=== PATIENT | male | born 1970 | race Caucasian/White ===

== ENCOUNTER 2021-07-03 12:42 | Emergency (ER) | payer MEDICAID, SELFPAY ==
[2021-07-03 12:45] VITALS: BP 140/86; PULSE 120; RESP 24; TEMP 36.9; O2SAT 96; BMI 23.7
--- NOTE | 2021-07-03 13:07 | HMH.EDUTC ---
[facility] [place] Impression: Viral syndrome, Gastroenteritis Disposition: Home, Self-Care Condition on Discharge: Good Instructions: Viral Gastroenteritis, DI for Viral Gastroenteritis -- Adult, DI for COVID-19 (Suspected or Confirmed ), Preventing the Spread of Coronavirus Discharge Instructions Additional Instructions: Drink plenty of fluids. Take tylenol or ibuprofen for pain or fever. Take the medications as directed. Follow up with your regular doctor. GO TO THE ER FOR ANY WORSENING SYMPTOMS Quarantine until you know the results of your covid-19 test. If it is positive, the health department should call you and give you further instructions about your length of Quarantine and other things. Notify your school or workplace of your results and follow their instructions regarding return to work/school. Prescriptions: Ondansetron [Zofran 4mg ODT] 4 mg PO DAILYP PRN #12 tab PRN Reason: Nausea Transmission Status: Received by [facility] Referrals: Camila Kirby APRN [Primary Care Provider] - Forms: Work/School Release Time of Disposition: 13:27 Medical Decision Making - Medical Records Medical records reviewed: No: I reviewed the patient's medical records. - Jerry Inquiry Pt receiving controlled substance: No Vital Signs: 07/03/21 12:45 07/03/21 13:18 Temperature 98.4 F 98.4 F Temperature Source Oral Pulse Rate 120 H Pulse Rate [Right Brachial] 120 H Respiratory Rate 24 24 Blood Pressure 140/86 Blood Pressure [Right Arm] 140/86 Blood Pressure Mean [Right Arm] 104 Blood Pressure Source [Right Arm] Automatic Cuff Blood Pressure Position [Right Arm] Sitting 02 Sat by Pulse Oximetry 96 Oxygen Delivery Method Room Air - Lab Data Lab results reviewed: Yes: I reviewed the patient's lab results. Lab Results 07/03/21 13:11: Strep Scn Rapid Clinic Negative Orders (Tests/Meds): ORDERS Category Date Time Status Strep Screen Confirmation Stat Micro 07/03/21 13:11 [place] [facility] [place] - General Stated complaint: fever,vomiting,head hurts when coughs Time Seen by Provider: 07/03/21 13:08 Mode of Arrival: Ambulatory Source of Information: Patient Limitations: No Limitations Description of Symptoms (Recalled from Triage Doc. by RN): PATIENT C/O FATIGUE, FEVER, AND VOMITING THAT STARTED TUESDAY. HIS DAUGHTER TESTED POSITIVE FOR COVID YESTERDAY HEENT Symptoms (Recalled from RN notes): No Resp Symptoms (Recalled from RN notes): No Skin Symptoms (Recalled from RN notes): No MS Symptoms (Recalled from RN notes): No Functional Status (Recalled from RN notes): WNL - History of Present Illness Provider Complaint: He states that he has had a head ache, sinus drainage,chills and body aches for the past 2 days. - Related Data Previous Rx's Medication Instructions Recorded Ondansetron [Zofran 4mg ODT] 4 mg PO DAILYP PRN #12 tab 07/03/21 Allergies Allergy/AdvReac Type Severity Reaction Status Date / Time hydrocodone [HYDROCODONE] Allergy Unknown SWELLING/RA Verified 07/03/21 13:03 SH - Worker's Comp Is this a Worker's Comp case?: No [facility] [place] History - Hepatitis A Screen Drug use history?: No High risk sexual behaviors?: No History of sexually transmitted infection?: No Currently employed?: No Childcare worker?: No Do you have indoor plumbing?: Yes Do you have electricity?: Yes Attestation statement:: This patient has been screened for Hepatitis A risk factors. I have reviewed the patient's past medical history: Yes ROS Obtained: Yes All systems reviewed & no additional complaints - Constitutional Constitutional: Reports chills, Denies fever(s), Reports poor appetite, Reports malaise - Eyes Eyes: Denies eye discharge - ENT Ears, Nose, Mouth, and Throat: Reports as per HPI - Cardiovascular Cardiovascular: Denies chest pain Physical Exam - General General appearance: alert, in no apparent distress - Miguel Angel
[2021-07-03 13:18] VITALS: BP 140/86; PULSE 120; RESP 24; TEMP 36.9; O2SAT 96
[2021-07-03 13:26] LABS: UTC Strep Screen (Rapid) Negative (Negative)
== END 2021-07-03 13:31 | disposition home or self-care (01) ==
PROVIDERS: Emergency Provider Nurse Practitioner Family; PCP Nurse Practitioner Family
DX: K52.9 Noninfective gastroenteritis and colitis, unspecified (principal); Z20.822 Contact with and (suspected) exposure to COVID-19
CPT/HCPCS: 87880; 99203; C9803; G0463; U0003; U0005

== ENCOUNTER 2024-06-08 13:27 | Emergency (ER) | payer MEDICAID, SELFPAY ==
[2024-06-08] VITALS (10 sets, daily range): BP systolic 131–147; BP diastolic 70–87; PULSE 93–145; RESP 16–19; TEMP 36.6–37.2; O2SAT 90–97; BMI 21.6
--- NOTE | 2024-06-08 13:31 | ECG_ITS ---
APPROVED REPORT Exam: Resting ECG HR:146 bpm ECG Measurements Heart Rate 146 AXES AR 116 P 90 QRSd 93 QRS 81 QT 326 T 84 QTc 410 Conclusion SINUS TACHYCARDIA WITH SHORT AR INTERVAL, POSSIBLE ATRIAL FLUTTER NONSPECIFIC ST & T-WAVE ABNORMALITY ABNORMAL RHYTHM ECG Electronically signed by : ALTON PEPE, 06/12/2024 18:24:02
--- NOTE | 2024-06-08 13:35 | ED_ITS ---
Discharge Plan Disposition Chief Complaint: Recheck/Abnormal Lab/Rx Prescriptions Prescriptions: No Action ondansetron 4 MG tablet,disintegrating 4 mg PO DAILYP PRN (Reason: Nausea) Qty: 12 0RF Referrals Follow up/Referrals: Provider,Referral, [Primary Care Provider] - See instructions Clinical Impressions Clinical Impression: Opioid abuse, Alcohol intoxication, Heat exposure Print Language Print Language: German Discharge ED Provider: Mohsen Agarwal General Adult HPI General Chief complaint: Recheck/Abnormal Lab/Rx Stated complaint: heat exhausting Time Seen by Provider: 06/08/24 13:34 History of Present Illness HPI narrative: Jan Mart is a 54-year-old male who presents to the emergency department via EMS for possible heat exposure and heroin overdose. Per EMS, patient was found with several other individuals at a house that is under construction and he admitted to using IV heroin today as well as drinking several fireball shots. When EMS arrived, they state that he was alert but they had difficulty getting him to his feet. He received Narcan and route and had some improvement of his symptoms. Patient is complaining of being thirsty at this time. He feels like he was out in the sun for too long and feels dehydrated. He is complaining of some abdominal pain at this time. Related Data Previous Rx's ?Medication ?Instructions ?Recorded ondansetron 4 mg disintegrating 4 mg PO DAILYP PRN Nausea #12 tabs 07/03/21 tablet Allergies Allergy/AdvReac Type Severity Reaction Status Date / Time hydrocodone [HYDROCODONE] Allergy Unknown SWELLING/RA Verified 07/03/21 13:03 [facility] Disclaimer: The information contained in this section may have been updated after the patient was seen, as this information can be updated by other users. Social History Smoking Status: Current every day smoker alcohol intake: current current occupational status: other details: unknown at this time Travel in the last 8 weeks: None ROS Obtained: Yes Systems reviewed as appropriate & no additional complaints except as documented Physical Exam General General appearance: alert, in no apparent distress and other Comment: Disheveled Head Head exam: atraumatic Eye Eye exam: Present normal appearance and PERRL ENT ENT exam: Present normal external ear exam Neck Neck exam: Present full ROM Chest Chest inspection: Present normal inspection and symmetric chest wall rise Respiratory Respiratory exam: Present normal lung sounds bilaterally; Absent respiratory distress, wheezes or stridor Cardiovascular Cardiovascular exam: Present normal rhythm and tachycardia Abdominal Exam Abdominal exam: Present soft, tenderness (Generalized) and guarding (Voluntary); Absent rigidity exam: Present deferred Extremities Exam Extremities exam: Present normal inspection Back Exam Back exam: Present normal inspection Neurological Exam Neurological exam: Present alert and oriented X3 Psychiatric Psychiatric exam: Present agitated (Repeatedly asking for water to drink and frustrated that he has not been given it yet) Skin Skin exam: Present warm and dry Medical Decision Making Medical Records Medical records reviewed: Yes I reviewed the patient's medical records. Jerry Inquiry Pt receiving controlled substance: No Vital Signs: 06/08/24 13:28 06/08/24 13:29 06/08/24 13:30 Temperature 99.0 F Temperature Source Oral Pulse Rate 145 H 140 H Pulse Rate [Left Radial] 130 H Respiratory Rate 19 Blood Pressure 139/81 135/87 Blood Pressure [Right Arm] 139/81 Blood Pressure Mean Blood Pressure Mean [Right Arm] 100 02 Sat by Pulse Oximetry 96 97 96 Oxygen Delivery Method Room Air Room Air Room Air 06/08/24 13:30 06/08/24 13:45 06/08/24 14:00 Temperature Temperature Source Pulse Rate 129 H 107 H Pulse Rate [Left Radial] Respiratory Rate Blood Pressure 135/87 132/78 Blood Pressure [Right Arm] Blood Pressure Mean 103 Blood Pressure Mean [Right Arm] 02 Sat by Pulse Oximetry 96 92 L Oxygen Delivery Method Room Air Room Air 06/08/24 14:30 06/08/24 15:00 Temperature Temperature Source Pulse Rate 105 H 93 H Pulse Rate [Left Radial] Respiratory Rate Blood Pressure 131/83 147/70 H Blood Pressure [Right Arm] Blood Pressure Mean Blood Pressure Mean [Right Arm] 02 Sat by Pulse Oximetry 93 L 92 L Oxygen Delivery Method Room Air Room Air Lab Data Lab Results 06/08/24 13:38: WBC 6.1, RBC 4.03 L, Hgb 14.2, Hct 43.8, MCV 108.7 H, MCH 35.1 H , MCHC 32.3, RDW 14.3, Plt Count 251, MPV 8.3, Neut % (Auto) 93.5 H, Lymph % (Auto) 4.1 L, Giles % (Auto) 1.3 L, Eos % (Auto) 0.8, Baso % (Auto) 0.3, Neut # (Auto) 5.7, Lymph # (Auto) 0.2 L, Giles # (Auto) 0.1, Eos # (Auto) 0.1, Baso # (Auto) 0.0, Total Counted 100, Neutrophils % (Manual) 91 H, Lymphocytes % (Manual) 8 L, Monocytes % (Manual) 1 L, Platelet Estimate Normal, RBC Morphology Normal, Sodium 137, Potassium 3.1 L, Chloride 103, Carbon Dioxide 23, Anion Gap 14.1, BUN 9, Creatinine 0.80, Estimated Creat Clear 104, Estimated GFR 100, Est GFR ( Amer) 121, Glucose 111 H, Calcium 8.2 L, Total Bilirubin 2.3 H, AST 132 H, ALT 44, Alkaline Phosphatase 196 H, Total Protein 7.1, Albumin 3.4 L, G lobulin 3.7 H, Albumin/Globulin Ratio 0.9 L, Lipase 229 06/08/24 13:38 06/08/24 13:38 Orders (Tests/Meds): ED MEDICATIONS Discontinued Medications Generic Name Dose Route Start Last Admin Trade Name Freq PRN Reason Stop Dose Admin Lactated Ringer's 500 mls @ 999 mls/hr 06/08/24 13:33 06/08/24 13:39 Lactated Ringer's 1000 Ml Bag IV 06/08/24 14:03 Not Given .Q31M ONE Lactated Ringer's 1,000 mls @ 999 mls/hr 06/08/24 13:38 06/08/24 13:41 Lactated Ringer's 1000 Ml Bag IV 06/08/24 14:38 999 mls/hr .Q1H1M ONE Administration Ondansetron HCl 4 mg 06/08/24 13:33 06/08/24 13:41 Ondansetron 4mg/2ml Vial IM 06/08/24 13:34 Not Given ONCE ONE Ondansetron HCl 4 mg 06/08/24 13:40 06/08/24 13:41 Ondansetron 4mg/2ml Vial IV 06/08/24 13:41 4 mg ONCE ONE Administration Potassium Chloride 60 meq 06/08/24 15:07 06/08/24 15:13 Potassium Chloride 20meq Tab PO 06/08/24 15:08 20 meq ONCE ONE Administration ORDERS Category Date Time Status Consult Exhauster Engineer [CONS] Routine Cons 06/08/24 14:49 Ordered CBC w/Auto Diff [Complete Blood Count Auto Diff] Stat Lab 06/08/24 13:38 Completed CMP [Comprehensive Metabolic Panel] Stat Lab 06/08/24 13:38 Completed HCV RNA PCR, Quant Stat Lab 06/08/24 15:04 Ordered Hepatitis Panel Stat Lab 06/08/24 15:04 Ordered Lipase Stat Lab 06/08/24 13:38 Completed Medical Decision Narrative: Jan Mart is a 54-year-old male with a history of alcohol use and substance use presenting to the emergency department for heroin use and heat exposure. Per EMS, patient was at a house that is under construction with several other individuals who were using IV drugs and drinking fireball shots. Patient admits to using IV heroin and drinking several fireball shots prior to this. EMS noted that he was unsteady on his feet and was given Narcan in the field with mild improvement of symptoms. He received small amount of IV fluids and round but no medications. They noted that he was vomiting multiple times and route. Patient is complaining of some abdominal pain but is repeatedly asking for water and is very frustrated that he has not been given water yet. He appears disheveled but no evidence of injury. Cardiopulmonary exams unremarkable. He has diffuse abdominal tenderness with voluntary guarding. Patient was noted to be tachycardic but hemodynamically stable. Patient is GCS 15 on arrival. Differential diagnosis includes: Opioid overdose, alcohol intoxication, dehydration, heat exhaustion, pancreatitis, hepatitis, among others. Patient's workup in the emergency department included: CBC, CMP, lipase. He was treated with 1 L lactated ringer. He was given 4 mg of IV Zofran as well for nausea and vomiting CBC demonstrated no leukocytosis, CMP with potassium of 3.1 (will replace with 60 mEq of p.o. potassium), total bilirubin elevated 2.3, AST elevated at 132, ALT normal at 44, alk phos elevated at 196 (will add hepatitis panel and hepatitis C PCR), lipase normal at 229. Throughout his ED stay, the patient's tachycardia improved. At this time, the patient's care was transferred to the oncoming physician, Dr. Cid, as he will need to metabolize the alcohol and opiates prior to being safe for discharge. Critical Care Critical Care Time Critical Care Time: No
[2024-06-08] MEDS: ONDANSETRON 4MG/2ML VIAL 4 MG IV ×2 (13:41→17:39)
[2024-06-08] MEDS: LACTATED RINGERS 1000ML 1,000 ML 999 ML IV (13:41)
[2024-06-08 13:50] LABS: Albumin Level 3.4 g/dl (3.5-5.0); Chloride 103 mmol/L (98-107); Potassium 3.1 mmoL/L (3.5-5.1); Sodium 137 mmol/L (136-145)
[2024-06-08 13:53] LABS: Alanine Aminotransferase 44 U/L (12-78); Albumin/Globulin Ratio 0.9 (1.1-1.8); Alkaline Phosphatase 196 U/L (38-126); Anion Gap 14.1 mEq/L (5-15); Aspartate Amino Transferase 132 U/L (17-59); Bilirubin,Total 2.3 mg/dl (0.2-1.3); Blood Urea Nitrogen 9 mg/dl (9-20); Calcium 8.2 mg/dl (8.4-10.2); Carbon Dioxide 23 mmol/L (22.0-30.0); Creatinine Clearance Estimated 104 mL/min (50-200); Estimated Glomerular Filt Rate 100 ml/min (>60); GFR (African American) 121 ML/MIN (>60); Globulin 3.7 g/dL (1.3-3.2); Glucose 111 mg/dl (74-100); Lipase 229 U/L (23-300); Total Protein,Serum 7.1 g/dl (6.3-8.2)
[2024-06-08 13:59] LABS: Basophils % 0.3 % (0.1-2.0); Eosinophils # 0.1 K/mm3 (0.0-0.4); Eosinophils % 0.8 % (0.1-12.0); Hematocrit 43.8 % (42.0-52.0); Hemoglobin 14.2 g/dL (14.1-18.0); Lymphocytes # 0.2 K/mm3 (0.7-4.5); Lymphocytes % 4.1 % (10-50); Mean Corpuscular HGB Conc 32.3 g/dL (31.8-35.4); Mean Corpuscular Hemoglobin 35.1 pg (27.0-31.2); Mean Corpuscular Volume 108.7 fl (80-94); Mean Platelet Volume 8.3 fl (7.4-10.4); Monocytes # 0.1 K/mm3 (0.1-1.0); Monocytes % 1.3 % (1.7-9.3); Neutrophils # 5.7 K/mm3 (1.8-7.8); Neutrophils % 93.5 % (37.0-80.0); Platelet Count 251 K/mm3 (142-424); Red Blood Count 4.03 M/mm3 (4.60-6.20); Red Cell Distribution Width 14.3 % (11.5-17.5); White Blood Count 6.1 K/mm3 (4.8-10.8)
[2024-06-08 14:11] LABS: MANUAL DIFFERENTIAL MANUAL DIFFERENTIAL (MANUAL DIFF)
--- NOTE | 2024-06-08 14:19 | PC.NURSE ---
Alanna, web specialist at [facility] with pt
[2024-06-08 15:06] LABS: Lymphocytes % 8 % (10-50); Monocytes % 1 % (2-9); Neutrophils % 91 % (42-76); Platelet Estimate Normal; RBC Morphology Normal; Total Cells Counted 100
[2024-06-08] MEDS: POTASSIUM CHLORIDE 20MEQ TAB 60 MEQ PO (15:13)
--- NOTE | 2024-06-08 17:06 | PC.NURSE ---
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
[2024-06-08] MEDS: NALOXONE HCL 4MG SPRAY 4 MG NS ×2 (17:39)
--- NOTE | 2024-06-12 18:25 | PEERSUPPORT ---
Peer Support Note Patient Information Patient Information: 06/08/2024 PT brought to ER via ambulance, he was administered Narcan to reverse opioid overdose. PS provided empathetic listening and validation to pts experience. PS practiced mindful breathing excercises to calm Pt breathing and tension from pain. PT shared he has used opiates to manage pain for many years of his life. PS shared personal experience to OUD, building rapport with emphasing the quality of life through recovery that is gained with options to inpatient treatment facilities, outpatient MAT, detox units in medical settings that allow safe detox while being under professional care. PS provided informtation to Xyle[facility] to educate on medication approaches to MAT. PT accepts and agrees to follow up by PS.
[2024-06-13 15:18] LABS: HBsAg Screen Negative (Negative); HCV Ab Reactive (Non Reactive); Hep A Ab, IGM Negative (Negative); Hep B Core Ab, IgM Negative (Negative)
== END 2024-06-08 18:05 | disposition home or self-care (01) ==
PROVIDERS: Student in an Organized Health Care Education/Training Program; Emergency Provider Emergency Medicine
DX: T40.1X1A Poisoning by heroin, accidental (unintentional), initial encounter (principal); R00.0 Tachycardia, unspecified; R11.2 Nausea with vomiting, unspecified; E87.6 Hypokalemia
CPT/HCPCS: 80053; 80074; 83690; 85007; 85025; 85027; 87522; 93005; 96361; 96374; 99285; J2405; J7120